=== PATIENT | male | born 1965 | race African-American/Black ===

== ENCOUNTER 2019-03-05 18:21 | Emergency (ER) | payer OTHER ==
[~2019-03-05] VITALS: Ht 175.3 cm; Wt 85.0 kg
[~2019-03-05 18:21] MED LIST: MULT-658 PO
[2019-03-05 18:29] VITALS: BP 155/95
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
[2019-03-05] MEDS ORDERED: DIAZEPAM 5 MG TABLET ONE (18:45)
[2019-03-05] MEDS ORDERED: KETOROLAC 30 MG/1 ML ONE (18:45)
--- NOTE | 2019-03-05 18:56 | NUR ---
REPORT TO MARGI MATTSON
[2019-03-05] MEDS ORDERED: KETOROLAC 30 MG/1 ML IM ONE (19:00)
[2019-03-05] MEDS ORDERED: DIAZEPAM 5 MG TABLET PO ONE (19:00)
== END 2019-03-05 19:50 | disposition home or self-care (01) ==
LOC: ED 19:30
DX: S39.012A Strain of muscle, fascia and tendon of lower back, initial encounter (principal); S16.1XXA Strain of muscle, fascia and tendon at neck level, initial encounter; G89.11 Acute pain due to trauma; M47.892 Other spondylosis, cervical region; M47.896 Other spondylosis, lumbar region; M48.02 Spinal stenosis, cervical region; V49.49XA Driver injured in collision with other motor vehicles in traffic accident, initial encounter; Y93.89 Activity, other specified; Y92.413 State road as the place of occurrence of the external cause; Y99.8 Other external cause status
CPT/HCPCS: 72050; 72110; 96372; 99283; J1885

== ENCOUNTER 2020-11-28 06:17 | Inpatient (IN) | payer OTHER ==
[~2020-11-28] VITALS: Ht 175.3 cm; Wt 97.0 kg
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
[2020-11-28] MEDS ORDERED: ALBUTEROL/IPRATROPIUM 2.5MG/0.5MG, 3 ML ONE (06:44)
[2020-11-28 07:00] LABS: MEAN CORPUSCULAR HEMOGLOBIN 30.5 pg (27.5-34.5); MEAN CORPUSCULAR HGB CONC 33.4 g/dL (33.2-36.2); MEAN PLATELET VOLUME 8.8 fL (7.4-10.4); PLATELET COUNT 357 x10^3/uL (130-400); RED BLOOD COUNT 4.72 x10^6/uL (4.38-5.82); RED CELL DISTRIBUTION WIDTH 13.8 % (9.4-14.8)
[2020-11-28] MEDS ORDERED: ALBUTEROL/IPRATROPIUM 2.5MG/0.5MG, 3 ML NPPB ONE (07:00)
[2020-11-28] MEDS ORDERED: SODIUM CHLORIDE FLUSH 10ML SYR IVF ONE (07:00)
[2020-11-28 07:13] LABS: ALBUMIN 2.9 g/dL (3.4-5.0); ANION GAP 7 mmol/L (5-15); CALCIUM 9.1 mg/dL (8.5-10.1); CHLORIDE 108 mmol/L (98-107)
[2020-11-28 07:16] LABS: ALANINE AMINOTRANSFERASE 44 U/L (12-78); ALKALINE PHOSPHATASE 150 U/L (45-117); BILIRUBIN,TOTAL 0.2 mg/dL (0.2-1.0); CREATININE 1.12 mg/dL (0.7-1.3); TOTAL PROTEIN 8.7 g/dL (6.4-8.2); TROPONIN I < 0.015 ng/mL (0.000-0.045)
[2020-11-28 07:19] LABS: <RBC MORPHOLOGY> NORMAL; BAND#(MANUAL) 2.42 x10^3/uL; BANDS%(MANUAL) 14 % (0-7); EOS#(MANUAL) 0.35 x10^3/uL (0.0-0.4); EOS% (MANUAL) 2 % (1-7); LYMPH#(MANUAL) 2.08 x10^3/uL (1-3.4); LYMPHS% (MANUAL) 12 % (22-44); MONOS#(MANUAL) 0.87 x10^3/uL (0.3-2.7); MONOS% (MANUAL) 5 % (2-9); SEG#(MANUAL) 11.59 x10^3/uL (1.8-6.8); SEGS% (MANUAL) 67 % (42-75)
[2020-11-28 07:20] LABS: <PLATELET ESTIMATE> ADEQUATE; <PLT MORPHOLOGY> NORMAL PLT MORPH
[2020-11-28] MEDS ORDERED: CEFTRIAXONE 1,000 MG in DEXTROSE 5% 50 ML IVPB ONE (08:00)
[2020-11-28] MEDS ORDERED: SODIUM CHLORIDE 0.9% 1,000 ML IV ONE (08:00)
[2020-11-28] MEDS ORDERED: AZITHROMYCIN 500 MG in SODIUM CHLORIDE 0.9% 250 ML IVPB ONE (08:00)
[2020-11-28] MEDS ORDERED: SODIUM CHLORIDE FLUSH 10ML SYR IVF PRN (08:00)
[2020-11-28] MEDS ORDERED: LISI-170 PO (08:17)
--- NOTE | 2020-11-28 08:17 | NUR ---
pt resting in bed, aware of poc.
--- NOTE | 2020-11-28 08:41 | NUR ---
[facility] mahad at bedside for eval.
[2020-11-28] MEDS ORDERED: LACTATED RINGERS 1,000 ML IV ONE (09:00)
[2020-11-28] MEDS ORDERED: CYANOCOBALAMIN 1,000 MCG/ML, 1ML IM ONE (09:00)
[2020-11-28] MEDS ORDERED: ONDANSETRON 2MG/ML, 2ML IVPush PRN (09:00)
[2020-11-28] MEDS ORDERED: ENALAPRILAT 1.25 MG/ML, 2ML IVPush PRN (09:00)
[2020-11-28] MEDS ORDERED: ONDANSETRON ODT 4 MG PO PRN (09:00)
[2020-11-28] MEDS ORDERED: ZINC SULFATE 220 MG CAPSULE PO SCH (09:00)
[2020-11-28] MEDS ORDERED: hydrALAzine 20 MG/ML, 1ML IVPush PRN (09:00)
[2020-11-28] MEDS ORDERED: BUTALB/APAP/CAFFEINE 50MG/325MG/40MG PO PRN (09:00)
[2020-11-28] MEDS ORDERED: methylPREDNISolone SOD SUCC 125 MG/2 ML ONE (09:27)
[2020-11-28] MEDS ORDERED: SENNA/DOCUSATE TABLET ONE (09:27)
[2020-11-28] MEDS ORDERED: ENOXAPARIN 40 MG/0.4 ML ONE (09:27)
[2020-11-28] MEDS ORDERED: ZINC SULFATE 220 MG CAPSULE ONE (09:28)
[2020-11-28] MEDS ORDERED: ONDANSETRON 2MG/ML, 2ML ONE (09:28)
[2020-11-28] MEDS ORDERED: LISINOPRIL 20 MG TABLET ONE (09:29)
[2020-11-28] MEDS ORDERED: FAMOTIDINE 20 MG TABLET ONE (09:29)
[2020-11-28] MEDS: LISINOPRIL 20 MG TABLET PO SCH (09:33)
[2020-11-28] MEDS: SENNA/DOCUSATE TABLET PO SCH (09:33)
[2020-11-28] MEDS: ENOXAPARIN 40 MG/0.4 ML SQ SCH (09:33)
[2020-11-28] MEDS: methylPREDNISolone SOD SUCC 125 MG/2 ML IV SCH ×3 (09:33→22:27)
[2020-11-28] MEDS: FAMOTIDINE 20 MG TABLET PO SCH ×2 (09:34→22:27)
[2020-11-28] MEDS ORDERED: ACETAMINOPHEN 325 MG TABLET ONE (10:06)
[2020-11-28] MEDS: ACETAMINOPHEN 325 MG TABLET PO PRN ×2 (10:10→19:29)
[2020-11-28] MEDS: MULTIVITS,STRESS FORMULA 1 TABLET PO SCH (10:11)
[2020-11-28] MEDS: CHOLECALCIFEROL 5,000u TAB PO SCH (10:11)
--- NOTE | 2020-11-28 10:20 | NUR ---
PT RESTING IN BED, CALL LIGHT IN REACH.
[2020-11-28] MEDS: FLUTICASONE/VILANTEROL 100-25MCG/INH INH SCH (11:09)
--- NOTE | 2020-11-28 12:44 | NUR ---
[facility]
[2020-11-28] MEDS: BACLOFEN 10 MG TABLET PO PRN (13:53)
--- NOTE | 2020-11-28 14:06 | NUR ---
REPORT CALLED TO DAMIÁN MATTSON
[2020-11-28 14:50] VITALS: BP 135/95
[2020-11-28] MEDS: BUTALB/APAP/CAFFEINE 50MG/325MG/40MG PO PRN ×2 (15:48→22:27)
[2020-11-28] MEDS: ASCORBIC ACID 500 MG TABLET PO SCH (15:48)
[2020-11-28] MEDS: CEFTRIAXONE 1,000 MG in DEXTROSE 5% 50 ML IVPB SCH (19:37)
[2020-11-28 19:52] VITALS: BP 125/90
[2020-11-28] MEDS: LIDODERM 5% PATCH TD SCH (22:23)
[2020-11-28] MEDS: MELATONIN 5 MG TABLET PO SCH (23:30)
[2020-11-29 00:45] VITALS: BP 120/79
[2020-11-29] MEDS: BACLOFEN 10 MG TABLET PO PRN (03:39)
[2020-11-29] MEDS: methylPREDNISolone SOD SUCC 125 MG/2 ML IV SCH ×4 (03:39→22:56)
[2020-11-29 06:35] LABS: MEAN CORPUSCULAR HEMOGLOBIN 30.3 pg (27.5-34.5); MEAN CORPUSCULAR HGB CONC 33.3 g/dL (33.2-36.2); MEAN PLATELET VOLUME 8.5 fL (7.4-10.4); PLATELET COUNT 254 x10^3/uL (130-400); RED BLOOD COUNT 4.19 x10^6/uL (4.38-5.82); RED CELL DISTRIBUTION WIDTH 13.9 % (9.4-14.8)
[2020-11-29 06:47] LABS: CHLORIDE 107 mmol/L (98-107)
[2020-11-29 06:53] LABS: ALANINE AMINOTRANSFERASE 33 U/L (12-78); ALBUMIN 2.6 g/dL (3.4-5.0); ALKALINE PHOSPHATASE 111 U/L (45-117); ANION GAP 4 mmol/L (5-15); BILIRUBIN,TOTAL 0.5 mg/dL (0.2-1.0); CALCIUM 9.6 mg/dL (8.5-10.1); CREATININE 1.05 mg/dL (0.7-1.3); TOTAL PROTEIN 8.1 g/dL (6.4-8.2)
[2020-11-29 07:17] LABS: <PLATELET ESTIMATE> ADEQUATE; <PLT MORPHOLOGY> NORMAL PLT MORPH; <RBC MORPHOLOGY> NORMAL; BAND#(MANUAL) 0.66 x10^3/uL; BANDS%(MANUAL) 4 % (0-7); LYMPH#(MANUAL) 0.83 x10^3/uL (1-3.4); LYMPHS% (MANUAL) 5 % (22-44); MONOS% (MANUAL) 3 % (2-9); SEG#(MANUAL) 14.52 x10^3/uL (1.8-6.8); SEGS% (MANUAL) 88 % (42-75)
[2020-11-29 08:36] VITALS: BP 126/89
[2020-11-29] MEDS: GUAIFENESIN/DM 200-20MG, 10ML UDC PO PRN (08:56)
[2020-11-29] MEDS: ASCORBIC ACID 500 MG TABLET PO SCH ×2 (08:57→15:25)
[2020-11-29] MEDS: CHOLECALCIFEROL 5,000u TAB PO SCH (08:57)
[2020-11-29] MEDS: ZINC SULFATE 220 MG CAPSULE PO SCH (08:57)
[2020-11-29] MEDS: ENOXAPARIN 40 MG/0.4 ML SQ SCH (08:57)
[2020-11-29] MEDS: FAMOTIDINE 20 MG TABLET PO SCH ×2 (08:58→22:57)
[2020-11-29] MEDS: MULTIVITS,STRESS FORMULA 1 TABLET PO SCH (08:58)
[2020-11-29] MEDS: SENNA/DOCUSATE TABLET PO SCH (08:58)
[2020-11-29] MEDS: LISINOPRIL 20 MG TABLET PO SCH (08:58)
[2020-11-29] MEDS: AZITHROMYCIN 500 MG in SODIUM CHLORIDE 0.9% 250 ML IV SCH (08:59)
[2020-11-29] MEDS: BUTALB/APAP/CAFFEINE 50MG/325MG/40MG PO PRN ×3 (08:59→18:06)
[2020-11-29] MEDS: FLUTICASONE/VILANTEROL 100-25MCG/INH INH SCH (09:07)
[2020-11-29] MEDS: LIDODERM REMOVE PATCH NOTE XX SCH (10:12)
[2020-11-29] MEDS: CEFTRIAXONE 1,000 MG in DEXTROSE 5% 50 ML IVPB SCH ×2 (10:30→20:22)
[2020-11-29 14:30] VITALS: BP 129/93
[2020-11-29] MEDS ORDERED: AMLO-211 PO (15:26)
[2020-11-29 20:29] VITALS: BP 133/96
[2020-11-29] MEDS: MELATONIN 5 MG TABLET PO SCH (22:56)
[2020-11-29] MEDS: LIDODERM 5% PATCH TD SCH (23:00)
[2020-11-30 01:20] VITALS: BP 132/63
[2020-11-30] MEDS: methylPREDNISolone SOD SUCC 125 MG/2 ML IV SCH ×2 (04:25→10:25)
[2020-11-30 05:49] LABS: MEAN CORPUSCULAR HEMOGLOBIN 30.1 pg (27.5-34.5); MEAN CORPUSCULAR HGB CONC 33.1 g/dL (33.2-36.2); MEAN PLATELET VOLUME 8.9 fL (7.4-10.4); PLATELET COUNT 247 x10^3/uL (130-400); RED BLOOD COUNT 4.05 x10^6/uL (4.38-5.82); RED CELL DISTRIBUTION WIDTH 13.8 % (9.4-14.8)
[2020-11-30 05:52] LABS: CHLORIDE 108 mmol/L (98-107)
[2020-11-30 06:08] LABS: BAND#(MANUAL) 2.29 x10^3/uL; BANDS%(MANUAL) 11 % (0-7); LYMPH#(MANUAL) 0.62 x10^3/uL (1-3.4); LYMPHS% (MANUAL) 3 % (22-44); MONOS#(MANUAL) 0.62 x10^3/uL (0.3-2.7); MONOS% (MANUAL) 3 % (2-9); SEG#(MANUAL) 17.26 x10^3/uL (1.8-6.8); SEGS% (MANUAL) 83 % (42-75)
[2020-11-30 06:09] LABS: <PLATELET ESTIMATE> ADEQUATE; <PLT MORPHOLOGY> NORMAL PLT MORPH; <RBC MORPHOLOGY> NORMAL
[2020-11-30 06:11] LABS: ALBUMIN 2.4 g/dL (3.4-5.0); ANION GAP 8 mmol/L (5-15); CALCIUM 9.5 mg/dL (8.5-10.1); CREATININE 0.81 mg/dL (0.7-1.3)
[2020-11-30] MEDS: SENNA/DOCUSATE TABLET PO SCH (09:00)
[2020-11-30] MEDS: CHOLECALCIFEROL 5,000u TAB PO SCH (10:23)
[2020-11-30] MEDS: GUAIFENESIN/DM 200-20MG, 10ML UDC PO PRN (10:23)
[2020-11-30] MEDS: ZINC SULFATE 220 MG CAPSULE PO SCH (10:23)
[2020-11-30] MEDS: FAMOTIDINE 20 MG TABLET PO SCH (10:23)
[2020-11-30] MEDS: ENOXAPARIN 40 MG/0.4 ML SQ SCH (10:24)
[2020-11-30] MEDS: MULTIVITS,STRESS FORMULA 1 TABLET PO SCH (10:25)
[2020-11-30] MEDS: ASCORBIC ACID 500 MG TABLET PO SCH (10:25)
[2020-11-30] MEDS: AZITHROMYCIN 500 MG in SODIUM CHLORIDE 0.9% 250 ML IV SCH (10:25)
[2020-11-30] MEDS: BUTALB/APAP/CAFFEINE 50MG/325MG/40MG PO PRN (10:25)
[2020-11-30] MEDS: FLUTICASONE/VILANTEROL 100-25MCG/INH INH SCH (10:26)
[2020-11-30] MEDS: LIDODERM REMOVE PATCH NOTE XX SCH (10:30)
[2020-11-30 10:36] VITALS: BP 136/86
[2020-11-30] MEDS: LISINOPRIL 20 MG TABLET PO SCH (10:38)
[2020-11-30] MEDS ORDERED: FLUT1AER INH (11:23)
[2020-11-30] MEDS ORDERED: PRED20TA PO (11:23)
[2020-11-30] MEDS ORDERED: ZINC220C8 PO (11:23)
[2020-11-30] MEDS ORDERED: MELA5TAB14 PO (11:23)
[2020-11-30] MEDS ORDERED: ASCO500T9 PO (11:23)
[2020-11-30] MEDS ORDERED: CHOL500045 PO (11:23)
[2020-11-30] MEDS: CEFTRIAXONE 1,000 MG in DEXTROSE 5% 50 ML IVPB SCH (11:41)
[2020-11-30] MEDS ORDERED: AZIT250T PO (14:57)
[2020-11-30] MEDS ORDERED: CEFD300C37 PO (14:57)
== END 2020-11-30 14:45 | disposition home or self-care (01) | DRG 871 ==
LOC: ED 08:04 → EDIP 08:16 → 4WST 15:00
PROVIDERS: ADMIT Family Medicine; ATTEND Family Medicine
DX: A41.9 Sepsis, unspecified organism (principal); J15.9 Unspecified bacterial pneumonia; J96.01 Acute respiratory failure with hypoxia; I10 Essential (primary) hypertension; R73.9 Hyperglycemia, unspecified
CPT/HCPCS: 36415; 71045; 80053; 80069; 82306; 83605; 83735; 83880; 84100; 84145; 84484; 85025; 85379; 87040; 93005; 96365; 96367; G0378; J0456; J0696; J1650; J2405; U0005; J2930; J3420; J7030; J7050; J7120; U0003

== ENCOUNTER 2020-12-03 13:17 | Inpatient (IN) | payer OTHER ==
[~2020-12-03] VITALS: Ht 175.3 cm; Wt 87.4 kg
[~2020-12-03 13:17] MED LIST changes: +AMLO-211 PO; +ASCO500T9 PO; +AZIT250T PO; +CEFD300C37 PO; +CHOL500045 PO; +FLUT1AER INH; +LISI-170 PO; +MELA5TAB14 PO; +PRED20TA PO; +ZINC220C8 PO
[2020-12-03 14:17] LABS: BASOPHILS % (AUTO) 0 % (0-1); EOSINOPHILS % (AUTO) 0 % (1-7); LYMPHOCYTES % (AUTO) 3 % (22-44); MEAN CORPUSCULAR HEMOGLOBIN 30.1 pg (27.5-34.5); MEAN CORPUSCULAR HGB CONC 33.2 g/dL (33.2-36.2); MEAN PLATELET VOLUME 8.9 fL (7.4-10.4); MONOCYTES % (AUTO) 2 % (2-9); NEUTROPHILS % (AUTO) 94 % (42-75); PLATELET COUNT 318 x10^3/uL (130-400); RED BLOOD COUNT 4.52 x10^6/uL (4.38-5.82); RED CELL DISTRIBUTION WIDTH 13.9 % (9.4-14.8)
[2020-12-03 14:22] LABS: ALANINE AMINOTRANSFERASE 171 U/L (12-78); ALBUMIN 2.6 g/dL (3.4-5.0); ANION GAP 8 mmol/L (5-15); CALCIUM 9.1 mg/dL (8.5-10.1); CHLORIDE 103 mmol/L (98-107)
[2020-12-03 14:26] LABS: ALKALINE PHOSPHATASE 178 U/L (45-117); BILIRUBIN,TOTAL 0.9 mg/dL (0.2-1.0); CREATININE 0.87 mg/dL (0.7-1.3); TOTAL PROTEIN 8.5 g/dL (6.4-8.2)
--- NOTE | 2020-12-03 14:40 | NUR ---
PT TO ROOM FROM LOBBY
[2020-12-03] MEDS ORDERED: PIPERACILLIN/TAZO 3.375 GM in DEXTROSE 5% 50 ML IVPB ONE (15:00)
[2020-12-03] MEDS ORDERED: SODIUM CHLORIDE FLUSH 10ML SYR IVF ONE (15:00)
--- NOTE | 2020-12-03 15:08 | NUR ---
IV PLACED. PT PLACED ON ALL ROOM MONITORING, NSR/ST ON MONITOR. HTN PRESENT 158/100. US AT BS, CALL LIGHT WITHIN REACH.
--- NOTE | 2020-12-03 15:13 | NUR ---
us in with patient
[2020-12-03] MEDS ORDERED: OMNIPAQUE 350 MG/ML, 75ML BOTTLE ONE (16:10)
[2020-12-03 16:20] LABS: TROPONIN I < 0.015 ng/mL (0.000-0.045)
--- NOTE | 2020-12-03 16:20 | NUR ---
PT BACK FROM CT. PT STATES COVID TESTED THREE TIMES IN PAST WEEK, ALL RESULTS NEGATIVE. ERP NOTIFIED, HOLD ON RETESTING FOR COVID AT THIS TIME. MED REC COMPLETED, CALL LIGHT WITHIN REACH.
[2020-12-03] MEDS ORDERED: POTASSIUM CHLORIDE 20 MEQ TAB.ER.PRT PO ONE (17:00)
[2020-12-03] MEDS ORDERED: VANCOMYCIN PER PHARMACY MC PRN (17:00)
[2020-12-03] MEDS: PIPERACILLIN/TAZO 3.375 GM in DEXTROSE 5% 50 ML IV SCH ×2 (17:07→23:31)
--- NOTE | 2020-12-03 17:13 | NUR ---
ANTIBIOTIC INFUSING PER ORDER AFTER BC X 2 DRAWN.
[2020-12-03] MEDS ORDERED: ASCORBIC ACID 500 MG TABLET ONE (17:29)
[2020-12-03] MEDS ORDERED: POTASSIUM CHLORIDE 20 MEQ TAB.ER.PRT ONE (17:29)
[2020-12-03] MEDS ORDERED: CYCLOBENZAPRINE 10 MG TABLET ONE (17:29)
[2020-12-03] MEDS ORDERED: ONDANSETRON ODT 4 MG PO PRN (17:30)
[2020-12-03] MEDS ORDERED: ONDANSETRON 2MG/ML, 2ML IVPush PRN (17:30)
[2020-12-03] MEDS ORDERED: DIPHENOXYLATE/ATROPINE TABLET PO PRN (17:30)
[2020-12-03] MEDS: CYCLOBENZAPRINE 10 MG TABLET PO PRN (17:41)
[2020-12-03] MEDS: ASCORBIC ACID 500 MG TABLET PO SCH (17:41)
[2020-12-03] MEDS ORDERED: LIDOCAINE 1%, 10ML ONE ×2 (17:52→18:31)
[2020-12-03 17:58] VITALS: BP 158/97
[2020-12-03 18:19] VITALS: BP 158/97
[2020-12-03] MEDS ORDERED: PHARMACOKINETIC MONITORING MC PRN (19:00)
[2020-12-03] MEDS ORDERED: VANCOMYCIN 2,100 MG in SODIUM CHLORIDE 0.9% 500 ML IV ONE (19:00)
[2020-12-03 19:46] VITALS: BP 144/91
[2020-12-03] MEDS: HEPARIN 5,000 UNITS/ML, 1ML SQ SCH (19:47)
[2020-12-03] MEDS: CARVEDILOL 6.25 MG TABLET PO SCH (19:47)
[2020-12-03] MEDS: MELATONIN 5 MG TABLET PO SCH (20:05)
[2020-12-03] MEDS: LACTOBACILLUS CHEW TABLET PO SCH (20:05)
[2020-12-03 20:44] VITALS: BP 138/97
[2020-12-03] MEDS ORDERED: ALBUTEROL SULFATE 2.5 MG/3 ML NPPB SCH (21:00)
[2020-12-03] MEDS ORDERED: BUDESONIDE 0.5 MG/2 ML INHA INH SCH (21:00)
[2020-12-04 00:46] VITALS: BP 144/91
[2020-12-04] MEDS: HEPARIN 5,000 UNITS/ML, 1ML SQ SCH ×3 (00:50→16:43)
[2020-12-04 05:02] VITALS: BP 131/91
[2020-12-04] MEDS: CARVEDILOL 6.25 MG TABLET PO SCH ×2 (05:03→16:49)
[2020-12-04] MEDS: PIPERACILLIN/TAZO 3.375 GM in DEXTROSE 5% 50 ML IV SCH ×3 (05:03→18:03)
[2020-12-04 06:21] LABS: BASOPHILS % (AUTO) 0 % (0-1); EOSINOPHILS % (AUTO) 1 % (1-7); LYMPHOCYTES % (AUTO) 16 % (22-44); MEAN CORPUSCULAR HEMOGLOBIN 30.6 pg (27.5-34.5); MEAN CORPUSCULAR HGB CONC 33.7 g/dL (33.2-36.2); MEAN PLATELET VOLUME 8.9 fL (7.4-10.4); MONOCYTES % (AUTO) 11 % (2-9); NEUTROPHILS % (AUTO) 72 % (42-75); PLATELET COUNT 284 x10^3/uL (130-400); RED BLOOD COUNT 4.15 x10^6/uL (4.38-5.82)
[2020-12-04 06:36] LABS: ALANINE AMINOTRANSFERASE 164 U/L (12-78); ALBUMIN 2.1 g/dL (3.4-5.0); ANION GAP 8 mmol/L (5-15); CALCIUM 8.9 mg/dL (8.5-10.1); CHLORIDE 107 mmol/L (98-107)
[2020-12-04 06:39] LABS: ALKALINE PHOSPHATASE 159 U/L (45-117); BILIRUBIN,TOTAL 0.8 mg/dL (0.2-1.0); CREATININE 0.78 mg/dL (0.7-1.3)
[2020-12-04 07:44] VITALS: BP 134/87
[2020-12-04] MEDS: LACTOBACILLUS CHEW TABLET PO SCH ×3 (08:54→20:02)
[2020-12-04] MEDS: ASCORBIC ACID 500 MG TABLET PO SCH ×2 (08:54→16:42)
[2020-12-04] MEDS: ZINC SULFATE 220 MG CAPSULE PO SCH (08:54)
[2020-12-04] MEDS: CHOLECALCIFEROL 5,000u TAB PO SCH (08:54)
[2020-12-04] MEDS: LISINOPRIL 20 MG TABLET PO SCH (08:55)
[2020-12-04] MEDS: ALBUTEROL HFA 90 MCG/SPRAY INH SCH (09:00)
[2020-12-04] MEDS ORDERED: FLUTICASONE/VILANTEROL 100-25MCG/INH INH SCH (09:00)
[2020-12-04] MEDS: VANCOMYCIN 1,700 MG in SODIUM CHLORIDE 0.9% 250 ML IV SCH ×2 (10:22→21:36)
[2020-12-04 14:53] VITALS: BP 141/90
[2020-12-04] MEDS: MELATONIN 5 MG TABLET PO SCH (20:02)
[2020-12-04 20:09] VITALS: BP 137/81
[2020-12-05] VITALS (13 sets, daily range): BP systolic 122–182; BP diastolic 50–150
[2020-12-05] MEDS: PIPERACILLIN/TAZO 3.375 GM in DEXTROSE 5% 50 ML IV SCH ×4 (00:20→19:51)
[2020-12-05] MEDS: CARVEDILOL 6.25 MG TABLET PO SCH ×2 (06:04→20:23)
[2020-12-05 06:31] LABS: BASOPHILS % (AUTO) 0 % (0-1); EOSINOPHILS % (AUTO) 1 % (1-7); LYMPHOCYTES % (AUTO) 13 % (22-44); MEAN CORPUSCULAR HEMOGLOBIN 30.4 pg (27.5-34.5); MEAN CORPUSCULAR HGB CONC 33.6 g/dL (33.2-36.2); MONOCYTES % (AUTO) 9 % (2-9); NEUTROPHILS % (AUTO) 77 % (42-75); PLATELET COUNT 316 x10^3/uL (130-400); RED BLOOD COUNT 4.31 x10^6/uL (4.38-5.82); RED CELL DISTRIBUTION WIDTH 13.7 % (9.4-14.8)
[2020-12-05 06:37] LABS: INTERNATIONAL NORMALIZED RATIO 1.02 (0.93-1.1); PROTHROMBIN TIME 10.9 Seconds (9.6-11.5)
[2020-12-05 06:38] LABS: ALBUMIN 2.2 g/dL (3.4-5.0); CHLORIDE 105 mmol/L (98-107)
[2020-12-05 06:45] LABS: ALANINE AMINOTRANSFERASE 186 U/L (12-78); ALKALINE PHOSPHATASE 205 U/L (45-117); ANION GAP 10 mmol/L (5-15); BILIRUBIN,TOTAL 1.4 mg/dL (0.2-1.0); CALCIUM 9.1 mg/dL (8.5-10.1); CREATININE 0.86 mg/dL (0.7-1.3); TOTAL PROTEIN 7.5 g/dL (6.4-8.2)
[2020-12-05] MEDS: ASCORBIC ACID 500 MG TABLET PO SCH ×2 (08:00→20:22)
[2020-12-05] MEDS: LACTOBACILLUS CHEW TABLET PO SCH ×3 (09:00→20:23)
[2020-12-05] MEDS: ALBUTEROL HFA 90 MCG/SPRAY INH SCH (09:00)
[2020-12-05] MEDS: CHOLECALCIFEROL 5,000u TAB PO SCH (09:00)
[2020-12-05] MEDS: ZINC SULFATE 220 MG CAPSULE PO SCH (09:00)
[2020-12-05] MEDS: LISINOPRIL 20 MG TABLET PO SCH (11:09)
[2020-12-05] MEDS: VANCOMYCIN 1,900 MG in SODIUM CHLORIDE 0.9% 250 ML IV SCH ×2 (11:09→23:13)
[2020-12-05] MEDS ORDERED: ONDANSETRON 2MG/ML, 2ML IVPush PRN ×2 (12:30→16:00)
[2020-12-05] MEDS ORDERED: MEPERIDINE/PF 25MG/0.5ML IVPush PRN (12:30)
[2020-12-05] MEDS ORDERED: PROMETHAZINE 25 MG/ML, 1ML IVPush PRN ×2 (12:30→16:00)
[2020-12-05] MEDS ORDERED: HYDROcodone/APAP 7.5-325MG/15ML UDC PO PRN (12:30)
[2020-12-05] MEDS ORDERED: OXYcodone 5 MG/5 ML ORAL.SOL UDC PO PRN ×2 (12:30→16:00)
[2020-12-05] MEDS ORDERED: EPINEPHRINE 1 MG/ML, 1ML ONE (14:03)
[2020-12-05] MEDS ORDERED: BUPIVACAINE/PF 0.25% ONE (14:03)
[2020-12-05] MEDS ORDERED: CHLORHEXIDINE 15 ML UDC ONE (14:13)
[2020-12-05] MEDS ORDERED: CHLORHEXIDINE 15 ML UDC PO ONE (14:30)
[2020-12-05] MEDS ORDERED: PROPOFOL 10 MG/ML, 20ML ONE (14:37)
[2020-12-05] MEDS ORDERED: MIDAZOLAM 1 MG/ML, 2ML ONE (14:37)
[2020-12-05] MEDS ORDERED: FENTANYL PF 250 MCG/5ML ONE (14:37)
[2020-12-05] MEDS ORDERED: DEXAMETHASONE 4 MG/ML, 1ML ONE ×2 (15:21)
[2020-12-05] MEDS ORDERED: ONDANSETRON 2MG/ML, 2ML ONE (15:48)
[2020-12-05] MEDS ORDERED: ROCURONIUM 10MG/ML,5ML ONE (15:48)
[2020-12-05] MEDS ORDERED: HYDROmorphone 1 MG/ML, 1ML INJ IVPush PRN (16:00)
[2020-12-05] MEDS ORDERED: hydrALAzine 20 MG/ML, 1ML IV PRN (16:00)
[2020-12-05] MEDS ORDERED: ACETAMINOPHEN 325 MG TABLET PO PRN (16:00)
[2020-12-05] MEDS ORDERED: LABETALOL 5MG/ML, 20ML IV PRN (16:00)
[2020-12-05] MEDS ORDERED: FENTANYL PF 100 MCG/2ML IV PRN (16:00)
[2020-12-05] MEDS ORDERED: FENTANYL PF 100 MCG/2ML ONE ×2 (16:11→17:12)
[2020-12-05] MEDS ORDERED: OXYcodone 5 MG/5 ML ORAL.SOL UDC ONE (17:12)
[2020-12-05] MEDS ORDERED: ACETAMINOPHEN 650 MG/20.3 ML UDC ONE (17:12)
[2020-12-05] MEDS: FENTANYL PF 100 MCG/2ML IV PRN ×3 (17:16→18:23)
[2020-12-05] MEDS ORDERED: HYDROmorphone 2 MG/ML, 1ML ONE (17:28)
[2020-12-05] MEDS: HYDROmorphone 1 MG/ML, 1ML INJ IVPush PRN ×2 (17:29→18:24)
[2020-12-05] MEDS: MELATONIN 5 MG TABLET PO SCH (20:21)
[2020-12-05] MEDS: ACETAMINOPHEN 325 MG TABLET PO PRN (20:48)
[2020-12-05] MEDS ORDERED: HYDROmorphone 2 MG/ML, 1ML IVPush PRN (23:00)
[2020-12-05] MEDS: morphine SULFATE 10 MG/ML, 1ML IV PRN (23:06)
[2020-12-06] MEDS: ENOXAPARIN 40 MG/0.4 ML SQ SCH ×2 (00:11→22:57)
[2020-12-06] MEDS: CEFOTETAN PMX 1GM/50ML 50 ML IVPB SCH ×2 (00:12→12:14)
[2020-12-06 01:18] VITALS: BP 120/85
[2020-12-06] MEDS: D5%-0.45NACL+KCL 20MEQ 1,000 ML IV SCH ×3 (01:22→21:49)
[2020-12-06] MEDS: PIPERACILLIN/TAZO 3.375 GM in DEXTROSE 5% 50 ML IV SCH ×4 (01:58→20:01)
[2020-12-06 05:24] LABS: BASOPHILS % (AUTO) 0 % (0-1); EOSINOPHILS % (AUTO) 0 % (1-7); LYMPHOCYTES % (AUTO) 7 % (22-44); MEAN CORPUSCULAR HEMOGLOBIN 30.4 pg (27.5-34.5); MEAN CORPUSCULAR HGB CONC 33.2 g/dL (33.2-36.2); MEAN PLATELET VOLUME 8.6 fL (7.4-10.4); MONOCYTES % (AUTO) 7 % (2-9); NEUTROPHILS % (AUTO) 86 % (42-75); PLATELET COUNT 346 x10^3/uL (130-400); RED BLOOD COUNT 4.02 x10^6/uL (4.38-5.82); RED CELL DISTRIBUTION WIDTH 13.7 % (9.4-14.8)
[2020-12-06] MEDS: morphine SULFATE 10 MG/ML, 1ML IV PRN ×4 (05:59→21:48)
[2020-12-06] MEDS: CARVEDILOL 6.25 MG TABLET PO SCH ×2 (05:59→17:50)
[2020-12-06 07:08] VITALS: BP 112/76
[2020-12-06] MEDS: CHOLECALCIFEROL 5,000u TAB PO SCH (08:03)
[2020-12-06] MEDS: ACETAMINOPHEN 325 MG TABLET PO PRN (08:03)
[2020-12-06] MEDS: LACTOBACILLUS CHEW TABLET PO SCH ×3 (08:03→21:50)
[2020-12-06] MEDS: ZINC SULFATE 220 MG CAPSULE PO SCH (08:03)
[2020-12-06] MEDS: ASCORBIC ACID 500 MG TABLET PO SCH ×2 (08:03→15:06)
[2020-12-06] MEDS: LISINOPRIL 20 MG TABLET PO SCH (08:04)
[2020-12-06] MEDS: ALBUTEROL HFA 90 MCG/SPRAY INH SCH (08:04)
[2020-12-06] MEDS: SODIUM CHLORIDE FLUSH 10ML SYR IVF SCH ×2 (08:04→21:49)
[2020-12-06] MEDS: CYCLOBENZAPRINE 10 MG TABLET PO PRN (10:11)
[2020-12-06] MEDS: VANCOMYCIN 1,900 MG in SODIUM CHLORIDE 0.9% 250 ML IV SCH ×2 (10:42→22:57)
[2020-12-06 13:28] VITALS: BP 117/87
[2020-12-06 20:33] VITALS: BP 110/75
[2020-12-06] MEDS: MELATONIN 5 MG TABLET PO SCH (21:00)
[2020-12-07 02:00] VITALS: BP 111/75
[2020-12-07] MEDS: PIPERACILLIN/TAZO 3.375 GM in DEXTROSE 5% 50 ML IV SCH ×4 (04:39→22:33)
[2020-12-07] MEDS: morphine SULFATE 10 MG/ML, 1ML IV PRN ×3 (04:40→23:00)
[2020-12-07 04:49] VITALS: BP 111/75
[2020-12-07] MEDS: CARVEDILOL 6.25 MG TABLET PO SCH ×2 (07:31→17:09)
[2020-12-07] MEDS: D5%-0.45NACL+KCL 20MEQ 1,000 ML IV SCH ×2 (07:31→23:00)
[2020-12-07] MEDS: ALBUTEROL HFA 90 MCG/SPRAY INH SCH (09:00)
[2020-12-07] MEDS: CHOLECALCIFEROL 5,000u TAB PO SCH (09:00)
[2020-12-07] MEDS: LISINOPRIL 20 MG TABLET PO SCH (09:00)
[2020-12-07 09:52] VITALS: BP 95/67
[2020-12-07] MEDS: ACETAMINOPHEN 325 MG TABLET PO PRN (09:57)
[2020-12-07] MEDS: LACTOBACILLUS CHEW TABLET PO SCH ×3 (09:57→22:33)
[2020-12-07] MEDS: ZINC SULFATE 220 MG CAPSULE PO SCH (09:57)
[2020-12-07] MEDS: SODIUM CHLORIDE FLUSH 10ML SYR IVF SCH ×2 (09:58→22:32)
[2020-12-07] MEDS: ASCORBIC ACID 500 MG TABLET PO SCH ×2 (09:59→17:09)
[2020-12-07] MEDS: VANCOMYCIN 1,900 MG in SODIUM CHLORIDE 0.9% 250 ML IV SCH ×2 (10:06→22:33)
[2020-12-07 14:13] VITALS: BP 102/68
[2020-12-07 17:05] VITALS: BP 138/89
[2020-12-07 20:09] VITALS: BP 116/75
[2020-12-07] MEDS: MELATONIN 5 MG TABLET PO SCH (21:00)
[2020-12-07] MEDS: ENOXAPARIN 40 MG/0.4 ML SQ SCH (22:34)
[2020-12-08 00:39] VITALS: BP 111/74
[2020-12-08] MEDS: PIPERACILLIN/TAZO 3.375 GM in DEXTROSE 5% 50 ML IV SCH ×2 (05:30→11:10)
[2020-12-08] MEDS: ACETAMINOPHEN 325 MG TABLET PO PRN ×2 (05:33→17:56)
[2020-12-08] MEDS: CARVEDILOL 6.25 MG TABLET PO SCH ×2 (06:22→17:46)
[2020-12-08 06:23] VITALS: BP 104/71
[2020-12-08] MEDS: SODIUM CHLORIDE FLUSH 10ML SYR IVF SCH ×2 (09:00→21:29)
[2020-12-08] MEDS: CHOLECALCIFEROL 5,000u TAB PO SCH (09:18)
[2020-12-08] MEDS: ZINC SULFATE 220 MG CAPSULE PO SCH (09:18)
[2020-12-08] MEDS: LISINOPRIL 20 MG TABLET PO SCH (09:18)
[2020-12-08] MEDS: LACTOBACILLUS CHEW TABLET PO SCH ×3 (09:18→21:28)
[2020-12-08] MEDS: ASCORBIC ACID 500 MG TABLET PO SCH ×2 (09:19→17:46)
[2020-12-08 10:39] LABS: BASOPHILS % (AUTO) 1 % (0-1); EOSINOPHILS % (AUTO) 1 % (1-7); LYMPHOCYTES % (AUTO) 7 % (22-44); MEAN CORPUSCULAR HGB CONC 32.6 g/dL (33.2-36.2); MEAN PLATELET VOLUME 8.4 fL (7.4-10.4); MONOCYTES % (AUTO) 7 % (2-9); NEUTROPHILS % (AUTO) 84 % (42-75); PLATELET COUNT 340 x10^3/uL (130-400); RED BLOOD COUNT 4.01 x10^6/uL (4.38-5.82); RED CELL DISTRIBUTION WIDTH 14.1 % (9.4-14.8)
[2020-12-08 10:48] LABS: ALANINE AMINOTRANSFERASE 54 U/L (12-78); ALBUMIN 1.5 g/dL (3.4-5.0); ANION GAP 10 mmol/L (5-15); CALCIUM 8.6 mg/dL (8.5-10.1); CHLORIDE 104 mmol/L (98-107)
[2020-12-08 10:51] LABS: ALKALINE PHOSPHATASE 160 U/L (45-117); BILIRUBIN,TOTAL 0.7 mg/dL (0.2-1.0); CREATININE 5.84 mg/dL (0.7-1.3); TOTAL PROTEIN 7.3 g/dL (6.4-8.2)
[2020-12-08] MEDS: ALBUTEROL HFA 90 MCG/SPRAY INH SCH (11:34)
[2020-12-08 12:26] LABS: VANCOMYCIN,TROUGH 109.3 mcg/mL (5.0-10.0)
[2020-12-08] MEDS ORDERED: PHARMACY MAY ADJ FOR RENAL FX MC PRN (12:30)
[2020-12-08] MEDS ORDERED: FUROSEMIDE 40 MG/4 ML IV ONE (13:00)
[2020-12-08] MEDS ORDERED: ALBUMIN HUMAN 25% 100 ML IV PRN (13:00)
[2020-12-08 15:53] VITALS: BP 126/82
[2020-12-08 15:54] LABS: CHLORIDE,URINE RANDOM 79 mmol/L; POTASSIUM,URINE RANDOM 7 mmol/L; SODIUM,URINE RANDOM 80 mmol/L
[2020-12-08 15:56] LABS: CREATININE,URINE RANDOM 18.7 mg/dL
[2020-12-08 16:11] LABS: MICROSCOPIC INDICATED
[2020-12-08 20:32] VITALS: BP 122/79
[2020-12-08] MEDS: MELATONIN 5 MG TABLET PO SCH (21:00)
[2020-12-08] MEDS: ENOXAPARIN 30 MG/0.3 ML SQ SCH (21:12)
[2020-12-08] MEDS: PIPERACILLIN/TAZO 2.25 GM in DEXTROSE 5% 50 ML IV SCH (21:33)
[2020-12-09 00:47] VITALS: BP 132/87
[2020-12-09 05:26] VITALS: BP 145/97
[2020-12-09] MEDS: PIPERACILLIN/TAZO 2.25 GM in DEXTROSE 5% 50 ML IV SCH ×3 (05:41→21:12)
[2020-12-09] MEDS: CARVEDILOL 6.25 MG TABLET PO SCH ×2 (05:41→16:51)
[2020-12-09 06:55] LABS: BASOPHILS % (AUTO) 0 % (0-1); EOSINOPHILS % (AUTO) 2 % (1-7); LYMPHOCYTES % (AUTO) 6 % (22-44); MEAN CORPUSCULAR HEMOGLOBIN 30.3 pg (27.5-34.5); MEAN PLATELET VOLUME 8.6 fL (7.4-10.4); MONOCYTES % (AUTO) 8 % (2-9); NEUTROPHILS % (AUTO) 85 % (42-75); PLATELET COUNT 369 x10^3/uL (130-400); RED BLOOD COUNT 3.99 x10^6/uL (4.38-5.82); RED CELL DISTRIBUTION WIDTH 14.5 % (9.4-14.8)
[2020-12-09 07:00] LABS: ALBUMIN 1.7 g/dL (3.4-5.0); ANION GAP 14 mmol/L (5-15); CALCIUM 9.1 mg/dL (8.5-10.1); CHLORIDE 102 mmol/L (98-107)
[2020-12-09 07:04] LABS: % IRON SATURATION 19 % (20-55); ALANINE AMINOTRANSFERASE 44 U/L (12-78); ALKALINE PHOSPHATASE 191 U/L (45-117); BILIRUBIN,TOTAL 0.7 mg/dL (0.2-1.0); CREATININE 6.87 mg/dL (0.7-1.3); IRON LEVEL 37 mcg/dL (65-175); TOTAL IRON BINDING CAPACITY 195 mcg/dL (250-450); TOTAL PROTEIN 7.3 g/dL (6.4-8.2)
[2020-12-09 07:50] VITALS: BP 134/90
[2020-12-09] MEDS: ZINC SULFATE 220 MG CAPSULE PO SCH (08:07)
[2020-12-09] MEDS: SODIUM CHLORIDE FLUSH 10ML SYR IVF SCH ×2 (08:07→21:12)
[2020-12-09] MEDS: CHOLECALCIFEROL 5,000u TAB PO SCH (08:07)
[2020-12-09] MEDS: ALBUTEROL HFA 90 MCG/SPRAY INH SCH (08:07)
[2020-12-09] MEDS: ASCORBIC ACID 500 MG TABLET PO SCH ×2 (08:07→16:51)
[2020-12-09] MEDS: LACTOBACILLUS CHEW TABLET PO SCH ×3 (08:07→21:12)
[2020-12-09] MEDS: ACETAMINOPHEN 325 MG TABLET PO PRN (08:14)
[2020-12-09] MEDS ORDERED: LACTOBACILLUS CHEW TABLET PO SCH (09:00)
[2020-12-09 12:57] VITALS: BP 125/80
[2020-12-09] MEDS: IRON SUCROSE COMPLEX 100MG/5ML IV SCH (13:27)
[2020-12-09] MEDS: ERGOCALCIFEROL 50,000 UNIT CAPSULE PO SCH (13:27)
[2020-12-09 20:27] VITALS: BP 137/90
[2020-12-09] MEDS: MELATONIN 5 MG TABLET PO SCH (21:00)
[2020-12-09] MEDS: ENOXAPARIN 30 MG/0.3 ML SQ SCH (21:07)
[2020-12-10 00:09] VITALS: BP 142/90
[2020-12-10 04:03] LABS: BASOPHILS % (AUTO) 0 % (0-1); EOSINOPHILS % (AUTO) 2 % (1-7); LYMPHOCYTES % (AUTO) 6 % (22-44); MEAN CORPUSCULAR HEMOGLOBIN 30.3 pg (27.5-34.5); MEAN CORPUSCULAR HGB CONC 33.2 g/dL (33.2-36.2); MEAN PLATELET VOLUME 8.5 fL (7.4-10.4); MONOCYTES % (AUTO) 8 % (2-9); NEUTROPHILS % (AUTO) 84 % (42-75); PLATELET COUNT 326 x10^3/uL (130-400); RED BLOOD COUNT 3.92 x10^6/uL (4.38-5.82)
[2020-12-10 04:15] LABS: CHLORIDE 101 mmol/L (98-107)
[2020-12-10 04:20] LABS: ALBUMIN 1.5 g/dL (3.4-5.0); ANION GAP 12 mmol/L (5-15); CALCIUM 8.9 mg/dL (8.5-10.1); CREATININE 7.56 mg/dL (0.7-1.3)
[2020-12-10] MEDS: PIPERACILLIN/TAZO 2.25 GM in DEXTROSE 5% 50 ML IV SCH ×3 (05:50→20:42)
[2020-12-10] MEDS: ASCORBIC ACID 500 MG TABLET PO SCH ×2 (05:50→17:59)
[2020-12-10] MEDS: CARVEDILOL 6.25 MG TABLET PO SCH ×2 (05:50→17:59)
[2020-12-10 06:00] VITALS: BP 165/95
[2020-12-10 07:04] VITALS: BP 146/85
[2020-12-10] MEDS: ZINC SULFATE 220 MG CAPSULE PO SCH (08:29)
[2020-12-10] MEDS: LACTOBACILLUS CHEW TABLET PO SCH ×3 (08:29→20:39)
[2020-12-10] MEDS: ALBUTEROL HFA 90 MCG/SPRAY INH SCH (08:30)
[2020-12-10] MEDS: SODIUM CHLORIDE FLUSH 10ML SYR IVF SCH ×2 (08:37→20:39)
[2020-12-10] MEDS: IRON SUCROSE COMPLEX 100MG/5ML IV SCH (12:50)
[2020-12-10] MEDS: AMLODIPINE 10 MG TAB PO SCH (12:50)
[2020-12-10] MEDS: ACETAMINOPHEN 325 MG TABLET PO PRN (12:58)
[2020-12-10 13:05] VITALS: BP 152/89
[2020-12-10 18:33] VITALS: BP 158/81
[2020-12-10] MEDS: ENOXAPARIN 30 MG/0.3 ML SQ SCH (20:17)
[2020-12-10] MEDS: CYCLOBENZAPRINE 10 MG TABLET PO PRN (20:39)
[2020-12-10] MEDS: MELATONIN 5 MG TABLET PO SCH (20:39)
[2020-12-11 01:43] VITALS: BP 144/73
[2020-12-11] MEDS: CARVEDILOL 6.25 MG TABLET PO SCH ×2 (05:48→17:19)
[2020-12-11] MEDS: PIPERACILLIN/TAZO 2.25 GM in DEXTROSE 5% 50 ML IV SCH (05:48)
[2020-12-11] MEDS: ACETAMINOPHEN 325 MG TABLET PO PRN ×2 (05:50→21:29)
[2020-12-11 07:29] LABS: BASOPHILS % (AUTO) 0 % (0-1); EOSINOPHILS % (AUTO) 2 % (1-7); LYMPHOCYTES % (AUTO) 5 % (22-44); MEAN CORPUSCULAR HEMOGLOBIN 30.1 pg (27.5-34.5); MEAN CORPUSCULAR HGB CONC 33.2 g/dL (33.2-36.2); MEAN PLATELET VOLUME 8.1 fL (7.4-10.4); MONOCYTES % (AUTO) 7 % (2-9); NEUTROPHILS % (AUTO) 86 % (42-75); PLATELET COUNT 316 x10^3/uL (130-400); RED BLOOD COUNT 3.78 x10^6/uL (4.38-5.82); RED CELL DISTRIBUTION WIDTH 14.2 % (9.4-14.8)
[2020-12-11 07:38] LABS: ALBUMIN 1.5 g/dL (3.4-5.0); ANION GAP 11 mmol/L (5-15); CALCIUM 8.7 mg/dL (8.5-10.1); CHLORIDE 102 mmol/L (98-107); CREATININE 8.49 mg/dL (0.7-1.3)
[2020-12-11 07:46] VITALS: BP 131/82
[2020-12-11] MEDS: ASCORBIC ACID 500 MG TABLET PO SCH ×2 (08:51→17:19)
[2020-12-11] MEDS: ZINC SULFATE 220 MG CAPSULE PO SCH (08:51)
[2020-12-11] MEDS: AMLODIPINE 10 MG TAB PO SCH (08:51)
[2020-12-11] MEDS: LACTOBACILLUS CHEW TABLET PO SCH ×3 (08:51→21:23)
[2020-12-11] MEDS: SODIUM CHLORIDE FLUSH 10ML SYR IVF SCH ×2 (08:52→21:23)
[2020-12-11] MEDS: ALBUTEROL HFA 90 MCG/SPRAY INH SCH (09:00)
[2020-12-11] MEDS: IRON SUCROSE COMPLEX 100MG/5ML IV SCH (13:59)
[2020-12-11 14:31] VITALS: BP 167/94
[2020-12-11] MEDS ORDERED: PIPERACILLIN/TAZO 2.25 GM in DEXTROSE 5% 50 ML IV SCH (19:00)
[2020-12-11 19:30] VITALS: BP 156/92
[2020-12-11] MEDS: MELATONIN 5 MG TABLET PO SCH (21:23)
[2020-12-11] MEDS: ENOXAPARIN 30 MG/0.3 ML SQ SCH (21:23)
[2020-12-11] MEDS: ONDANSETRON 2MG/ML, 2ML IV PRN (21:34)
[2020-12-12 01:35] VITALS: BP 149/95
[2020-12-12 04:58] VITALS: BP 156/98
[2020-12-12] MEDS: CARVEDILOL 6.25 MG TABLET PO SCH ×2 (04:59→18:05)
[2020-12-12 07:49] VITALS: BP 131/78
[2020-12-12] MEDS: ALBUTEROL HFA 90 MCG/SPRAY INH SCH (08:39)
[2020-12-12] MEDS: ASCORBIC ACID 500 MG TABLET PO SCH ×2 (08:39→16:08)
[2020-12-12] MEDS: AMLODIPINE 10 MG TAB PO SCH (08:39)
[2020-12-12] MEDS: LACTOBACILLUS CHEW TABLET PO SCH ×3 (08:39→20:48)
[2020-12-12] MEDS: ZINC SULFATE 220 MG CAPSULE PO SCH (08:39)
[2020-12-12] MEDS: SODIUM CHLORIDE FLUSH 10ML SYR IVF SCH ×2 (08:39→20:48)
[2020-12-12 08:52] LABS: BASOPHILS % (AUTO) 1 % (0-1); EOSINOPHILS % (AUTO) 3 % (1-7); LYMPHOCYTES % (AUTO) 7 % (22-44); MEAN CORPUSCULAR HGB CONC 33.1 g/dL (33.2-36.2); MEAN PLATELET VOLUME 8.6 fL (7.4-10.4); MONOCYTES % (AUTO) 8 % (2-9); NEUTROPHILS % (AUTO) 82 % (42-75); PLATELET COUNT 323 x10^3/uL (130-400); RED BLOOD COUNT 3.73 x10^6/uL (4.38-5.82); RED CELL DISTRIBUTION WIDTH 14.2 % (9.4-14.8)
[2020-12-12 08:56] LABS: ALBUMIN 1.6 g/dL (3.4-5.0); ANION GAP 11 mmol/L (5-15); CALCIUM 8.7 mg/dL (8.5-10.1); CHLORIDE 103 mmol/L (98-107); CREATININE 9.12 mg/dL (0.7-1.3)
[2020-12-12] MEDS: IRON SUCROSE COMPLEX 100MG/5ML IV SCH (11:52)
[2020-12-12] MEDS: ACETAMINOPHEN 325 MG TABLET PO PRN ×2 (13:07→20:49)
[2020-12-12 15:03] VITALS: BP 134/83
[2020-12-12 19:02] VITALS: BP 143/84
[2020-12-12] MEDS: MELATONIN 5 MG TABLET PO SCH (20:49)
[2020-12-13 02:31] VITALS: BP 145/86
[2020-12-13 06:03] LABS: BASOPHILS % (AUTO) 1 % (0-1); EOSINOPHILS % (AUTO) 3 % (1-7); LYMPHOCYTES % (AUTO) 9 % (22-44); MEAN CORPUSCULAR HEMOGLOBIN 29.5 pg (27.5-34.5); MEAN CORPUSCULAR HGB CONC 32.4 g/dL (33.2-36.2); MEAN PLATELET VOLUME 8.1 fL (7.4-10.4); MONOCYTES % (AUTO) 8 % (2-9); NEUTROPHILS % (AUTO) 80 % (42-75); PLATELET COUNT 368 x10^3/uL (130-400); RED BLOOD COUNT 3.81 x10^6/uL (4.38-5.82); RED CELL DISTRIBUTION WIDTH 14.3 % (9.4-14.8)
[2020-12-13 06:19] LABS: ANION GAP 11 mmol/L (5-15); CALCIUM 9.1 mg/dL (8.5-10.1); CHLORIDE 103 mmol/L (98-107)
[2020-12-13 06:23] LABS: INTERNATIONAL NORMALIZED RATIO 1.06 (0.93-1.1); PROTHROMBIN TIME 11.3 Seconds (9.6-11.5)
[2020-12-13 06:26] VITALS: BP 148/86
[2020-12-13] MEDS: CARVEDILOL 6.25 MG TABLET PO SCH ×2 (06:27→16:55)
[2020-12-13 08:08] VITALS: BP 145/85
[2020-12-13] MEDS: AMLODIPINE 10 MG TAB PO SCH (08:24)
[2020-12-13] MEDS: ASCORBIC ACID 500 MG TABLET PO SCH ×2 (08:24→16:55)
[2020-12-13] MEDS: LACTOBACILLUS CHEW TABLET PO SCH ×3 (08:24→20:11)
[2020-12-13] MEDS: ZINC SULFATE 220 MG CAPSULE PO SCH (08:24)
[2020-12-13] MEDS: SODIUM CHLORIDE FLUSH 10ML SYR IVF SCH ×2 (08:25→20:11)
[2020-12-13] MEDS: ALBUTEROL HFA 90 MCG/SPRAY INH SCH (08:25)
[2020-12-13] MEDS: IRON SUCROSE COMPLEX 100MG/5ML IV SCH (12:46)
[2020-12-13] MEDS: morphine SULFATE 10 MG/ML, 1ML IV PRN (12:47)
[2020-12-13] MEDS: ONDANSETRON 2MG/ML, 2ML IV PRN (12:47)
[2020-12-13 13:10] VITALS: BP 138/81
[2020-12-13 19:38] VITALS: BP 136/74
[2020-12-13] MEDS: MELATONIN 5 MG TABLET PO SCH (20:10)
[2020-12-14 01:22] VITALS: BP 143/85
[2020-12-14 06:35] VITALS: BP 144/83
[2020-12-14] MEDS: ACETAMINOPHEN 325 MG TABLET PO PRN (06:35)
[2020-12-14] MEDS: CARVEDILOL 6.25 MG TABLET PO SCH ×2 (06:36→17:15)
[2020-12-14 08:42] LABS: BASOPHILS % (AUTO) 1 % (0-1); EOSINOPHILS % (AUTO) 3 % (1-7); LYMPHOCYTES % (AUTO) 8 % (22-44); MEAN CORPUSCULAR HEMOGLOBIN 31.1 pg (27.5-34.5); MEAN CORPUSCULAR HGB CONC 34.7 g/dL (33.2-36.2); MEAN PLATELET VOLUME 7.6 fL (7.4-10.4); MONOCYTES % (AUTO) 8 % (2-9); NEUTROPHILS % (AUTO) 81 % (42-75); PLATELET COUNT 382 x10^3/uL (130-400); RED BLOOD COUNT 3.74 x10^6/uL (4.38-5.82); RED CELL DISTRIBUTION WIDTH 14.2 % (9.4-14.8)
[2020-12-14 08:54] LABS: ALBUMIN 1.9 g/dL (3.4-5.0); ANION GAP 8 mmol/L (5-15); CALCIUM 8.5 mg/dL (8.5-10.1); CHLORIDE 104 mmol/L (98-107)
[2020-12-14] MEDS: ASCORBIC ACID 500 MG TABLET PO SCH ×2 (09:03→17:15)
[2020-12-14] MEDS: ZINC SULFATE 220 MG CAPSULE PO SCH (09:03)
[2020-12-14] MEDS: AMLODIPINE 10 MG TAB PO SCH (09:03)
[2020-12-14] MEDS: LACTOBACILLUS CHEW TABLET PO SCH ×3 (09:03→20:54)
[2020-12-14] MEDS: ALBUTEROL HFA 90 MCG/SPRAY INH SCH (09:03)
[2020-12-14] MEDS: SODIUM CHLORIDE FLUSH 10ML SYR IVF SCH ×2 (09:04→20:55)
[2020-12-14 15:05] VITALS: BP 137/80
[2020-12-14 19:40] VITALS: BP 149/89
[2020-12-14] MEDS: MELATONIN 5 MG TABLET PO SCH (20:54)
[2020-12-15 01:53] VITALS: BP 159/88
[2020-12-15 05:36] VITALS: BP 163/95
[2020-12-15] MEDS: CARVEDILOL 6.25 MG TABLET PO SCH ×2 (05:37→17:36)
[2020-12-15 06:21] LABS: CHLORIDE 106 mmol/L (98-107)
[2020-12-15 06:32] LABS: ALANINE AMINOTRANSFERASE 48 U/L (12-78); ALBUMIN 1.9 g/dL (3.4-5.0); ALKALINE PHOSPHATASE 173 U/L (45-117); ANION GAP 9 mmol/L (5-15); BILIRUBIN,TOTAL 0.5 mg/dL (0.2-1.0); CALCIUM 8.5 mg/dL (8.5-10.1); TOTAL PROTEIN 7.4 g/dL (6.4-8.2)
[2020-12-15 08:06] VITALS: BP 152/87
[2020-12-15 08:30] LABS: BASOPHILS % (AUTO) 0 % (0-1); EOSINOPHILS % (AUTO) 2 % (1-7); LYMPHOCYTES % (AUTO) 8 % (22-44); MEAN CORPUSCULAR HEMOGLOBIN 29.9 pg (27.5-34.5); MEAN CORPUSCULAR HGB CONC 33.1 g/dL (33.2-36.2); MEAN PLATELET VOLUME 8.1 fL (7.4-10.4); MONOCYTES % (AUTO) 6 % (2-9); NEUTROPHILS % (AUTO) 83 % (42-75); PLATELET COUNT 382 x10^3/uL (130-400); RED BLOOD COUNT 3.73 x10^6/uL (4.38-5.82); RED CELL DISTRIBUTION WIDTH 14.2 % (9.4-14.8)
[2020-12-15] MEDS ORDERED: FENTANYL PF 100 MCG/2ML ONE (09:42)
[2020-12-15] MEDS ORDERED: MIDAZOLAM 1 MG/ML, 5ML ONE (09:42)
[2020-12-15] MEDS ORDERED: FLUMAZENIL 0.1 MG/1 ML, 5ML ONE (09:43)
[2020-12-15] MEDS ORDERED: NALOXONE 1 MG/ML, 2ML ONE (09:43)
[2020-12-15] MEDS ORDERED: LIDOCAINE 1%, 10ML ONE (09:46)
[2020-12-15] MEDS ORDERED: LIDOCAINE 1%, 20ML ONE (09:46)
[2020-12-15] MEDS ORDERED: CEFAZOLIN PMX 1GM/50ML 50 ML ONE (09:51)
[2020-12-15 11:15] VITALS: BP 140/90
[2020-12-15] MEDS: ALBUTEROL HFA 90 MCG/SPRAY INH SCH (11:24)
[2020-12-15] MEDS: ZINC SULFATE 220 MG CAPSULE PO SCH (11:24)
[2020-12-15] MEDS: LACTOBACILLUS CHEW TABLET PO SCH ×3 (11:24→20:19)
[2020-12-15] MEDS: SODIUM CHLORIDE FLUSH 10ML SYR IVF SCH ×2 (11:24→20:19)
[2020-12-15] MEDS: AMLODIPINE 10 MG TAB PO SCH (11:24)
[2020-12-15] MEDS: ASCORBIC ACID 500 MG TABLET PO SCH ×2 (11:24→17:36)
[2020-12-15] MEDS: ACETAMINOPHEN 325 MG TABLET PO PRN (13:14)
[2020-12-15 13:43] VITALS: BP 165/99
[2020-12-15 19:44] VITALS: BP 155/92
[2020-12-15] MEDS: MELATONIN 5 MG TABLET PO SCH (20:19)
[2020-12-16 00:36] VITALS: BP 153/89
[2020-12-16 05:52] VITALS: BP 158/60
[2020-12-16] MEDS: CARVEDILOL 6.25 MG TABLET PO SCH ×2 (05:53→19:17)
[2020-12-16 06:13] LABS: BASOPHILS % (AUTO) 1 % (0-1); EOSINOPHILS % (AUTO) 2 % (1-7); LYMPHOCYTES % (AUTO) 9 % (22-44); MEAN CORPUSCULAR HEMOGLOBIN 30.2 pg (27.5-34.5); MEAN CORPUSCULAR HGB CONC 33.6 g/dL (33.2-36.2); MEAN PLATELET VOLUME 7.7 fL (7.4-10.4); MONOCYTES % (AUTO) 9 % (2-9); NEUTROPHILS % (AUTO) 80 % (42-75); PLATELET COUNT 354 x10^3/uL (130-400); RED BLOOD COUNT 3.62 x10^6/uL (4.38-5.82); RED CELL DISTRIBUTION WIDTH 14.2 % (9.4-14.8)
[2020-12-16 06:36] LABS: CHLORIDE 109 mmol/L (98-107)
[2020-12-16 06:44] LABS: ANION GAP 7 mmol/L (5-15); CALCIUM 8.7 mg/dL (8.5-10.1)
[2020-12-16 08:50] VITALS: BP 164/99
[2020-12-16] MEDS: ASCORBIC ACID 500 MG TABLET PO SCH ×2 (11:08→16:27)
[2020-12-16] MEDS: AMLODIPINE 10 MG TAB PO SCH (11:08)
[2020-12-16] MEDS: ALBUTEROL HFA 90 MCG/SPRAY INH SCH (11:09)
[2020-12-16] MEDS: ZINC SULFATE 220 MG CAPSULE PO SCH (11:09)
[2020-12-16] MEDS: LACTOBACILLUS CHEW TABLET PO SCH ×3 (11:09→20:25)
[2020-12-16] MEDS: SODIUM CHLORIDE FLUSH 10ML SYR IVF SCH ×2 (11:09→20:25)
[2020-12-16] MEDS: ERGOCALCIFEROL 50,000 UNIT CAPSULE PO SCH (16:27)
[2020-12-16 19:09] VITALS: BP 156/93
[2020-12-16 19:42] VITALS: BP 169/99
[2020-12-16] MEDS: MELATONIN 5 MG TABLET PO SCH (20:25)
[2020-12-17 00:12] VITALS: BP 146/90
[2020-12-17 05:48] VITALS: BP 150/90
[2020-12-17] MEDS: CARVEDILOL 6.25 MG TABLET PO SCH (05:49)
[2020-12-17 06:26] LABS: ALBUMIN 1.9 g/dL (3.4-5.0); ANION GAP 5 mmol/L (5-15); CALCIUM 8.2 mg/dL (8.5-10.1); CHLORIDE 107 mmol/L (98-107); CREATININE 5.34 mg/dL (0.7-1.3)
[2020-12-17] MEDS ORDERED: CARVEDILOL 6.25 MG TABLET PO ONE (06:30)
[2020-12-17] MEDS: ONDANSETRON 2MG/ML, 2ML IV PRN (08:57)
[2020-12-17] MEDS: ZINC SULFATE 220 MG CAPSULE PO SCH (08:58)
[2020-12-17] MEDS: LACTOBACILLUS CHEW TABLET PO SCH ×3 (08:58→20:53)
[2020-12-17] MEDS: ALBUTEROL HFA 90 MCG/SPRAY INH SCH (08:58)
[2020-12-17] MEDS: AMLODIPINE 10 MG TAB PO SCH (08:58)
[2020-12-17] MEDS: ASCORBIC ACID 500 MG TABLET PO SCH ×2 (08:58→17:08)
[2020-12-17] MEDS: SODIUM CHLORIDE FLUSH 10ML SYR IVF SCH ×2 (08:59→20:53)
[2020-12-17 09:03] VITALS: BP 156/102
[2020-12-17 13:08] VITALS: BP 152/87
[2020-12-17 17:07] VITALS: BP 156/97
[2020-12-17] MEDS: CARVEDILOL 12.5 MG TABLET PO SCH (17:08)
[2020-12-17 19:49] VITALS: BP 139/89
[2020-12-17] MEDS: MELATONIN 5 MG TABLET PO SCH (20:53)
[2020-12-18 02:06] VITALS: BP 138/90
[2020-12-18 05:23] VITALS: BP 151/94
[2020-12-18] MEDS: CARVEDILOL 12.5 MG TABLET PO SCH ×2 (05:24→17:35)
[2020-12-18 05:46] LABS: BASOPHILS % (AUTO) 1 % (0-1); EOSINOPHILS % (AUTO) 3 % (1-7); LYMPHOCYTES % (AUTO) 12 % (22-44); MEAN CORPUSCULAR HEMOGLOBIN 30.1 pg (27.5-34.5); MEAN CORPUSCULAR HGB CONC 33.4 g/dL (33.2-36.2); MEAN PLATELET VOLUME 7.6 fL (7.4-10.4); MONOCYTES % (AUTO) 9 % (2-9); NEUTROPHILS % (AUTO) 75 % (42-75); PLATELET COUNT 295 x10^3/uL (130-400); RED BLOOD COUNT 3.44 x10^6/uL (4.38-5.82); RED CELL DISTRIBUTION WIDTH 14.4 % (9.4-14.8)
[2020-12-18 05:56] LABS: CHLORIDE 106 mmol/L (98-107)
[2020-12-18 06:02] LABS: ALBUMIN 1.8 g/dL (3.4-5.0); ANION GAP 7 mmol/L (5-15); CALCIUM 8.3 mg/dL (8.5-10.1); CREATININE 5.27 mg/dL (0.7-1.3)
[2020-12-18 07:44] VITALS: BP 148/91
[2020-12-18] MEDS: SODIUM CHLORIDE FLUSH 10ML SYR IVF SCH ×2 (09:00→20:53)
[2020-12-18] MEDS: ZINC SULFATE 220 MG CAPSULE PO SCH (09:11)
[2020-12-18] MEDS: AMLODIPINE 10 MG TAB PO SCH (09:11)
[2020-12-18] MEDS: LACTOBACILLUS CHEW TABLET PO SCH ×3 (09:11→20:51)
[2020-12-18] MEDS: ASCORBIC ACID 500 MG TABLET PO SCH ×2 (09:11→16:24)
[2020-12-18] MEDS: ALBUTEROL HFA 90 MCG/SPRAY INH SCH (10:36)
[2020-12-18 13:35] VITALS: BP 143/88
[2020-12-18 20:00] VITALS: BP 145/90
[2020-12-18] MEDS: MELATONIN 5 MG TABLET PO SCH (20:52)
[2020-12-19 01:46] VITALS: BP 140/86
[2020-12-19 06:27] LABS: ANION GAP 7 mmol/L (5-15); CALCIUM 8.5 mg/dL (8.5-10.1); CHLORIDE 107 mmol/L (98-107); CREATININE 4.69 mg/dL (0.7-1.3)
[2020-12-19] MEDS: CARVEDILOL 12.5 MG TABLET PO SCH ×2 (06:27→17:40)
[2020-12-19 08:10] VITALS: BP 133/83
[2020-12-19] MEDS: ZINC SULFATE 220 MG CAPSULE PO SCH (09:03)
[2020-12-19] MEDS: AMLODIPINE 10 MG TAB PO SCH (09:03)
[2020-12-19] MEDS: ASCORBIC ACID 500 MG TABLET PO SCH ×2 (09:03→17:40)
[2020-12-19] MEDS: LACTOBACILLUS CHEW TABLET PO SCH ×3 (09:03→21:27)
[2020-12-19] MEDS: SODIUM CHLORIDE FLUSH 10ML SYR IVF SCH ×2 (09:04→21:27)
[2020-12-19] MEDS: ALBUTEROL HFA 90 MCG/SPRAY INH SCH (09:48)
[2020-12-19 14:26] VITALS: BP 142/87
[2020-12-19 21:24] VITALS: BP 156/95
[2020-12-19] MEDS: ACETAMINOPHEN 325 MG TABLET PO PRN (21:27)
[2020-12-19] MEDS: MELATONIN 5 MG TABLET PO SCH (21:28)
[2020-12-20] MEDS: ONDANSETRON 2MG/ML, 2ML IV PRN (00:25)
[2020-12-20 00:44] VITALS: BP 148/97
[2020-12-20 06:25] LABS: CHLORIDE 106 mmol/L (98-107)
[2020-12-20 06:27] LABS: BASOPHILS % (AUTO) 1 % (0-1); EOSINOPHILS % (AUTO) 4 % (1-7); LYMPHOCYTES % (AUTO) 17 % (22-44); MEAN CORPUSCULAR HEMOGLOBIN 29.4 pg (27.5-34.5); MEAN CORPUSCULAR HGB CONC 32.8 g/dL (33.2-36.2); MEAN PLATELET VOLUME 7.6 fL (7.4-10.4); MONOCYTES % (AUTO) 10 % (2-9); NEUTROPHILS % (AUTO) 69 % (42-75); PLATELET COUNT 329 x10^3/uL (130-400); RED BLOOD COUNT 3.42 x10^6/uL (4.38-5.82); RED CELL DISTRIBUTION WIDTH 14.5 % (9.4-14.8)
[2020-12-20 06:33] LABS: ALANINE AMINOTRANSFERASE 40 U/L (12-78); ALKALINE PHOSPHATASE 146 U/L (45-117); ANION GAP 9 mmol/L (5-15); BILIRUBIN,TOTAL 0.3 mg/dL (0.2-1.0); CALCIUM 8.6 mg/dL (8.5-10.1); CREATININE 3.92 mg/dL (0.7-1.3); TOTAL PROTEIN 7.3 g/dL (6.4-8.2)
[2020-12-20] MEDS: CARVEDILOL 12.5 MG TABLET PO SCH (06:42)
[2020-12-20 08:03] VITALS: BP 147/92
[2020-12-20] MEDS: ASCORBIC ACID 500 MG TABLET PO SCH (08:51)
[2020-12-20] MEDS: AMLODIPINE 10 MG TAB PO SCH (08:52)
[2020-12-20] MEDS: SODIUM CHLORIDE FLUSH 10ML SYR IVF SCH (08:52)
[2020-12-20] MEDS: LACTOBACILLUS CHEW TABLET PO SCH (08:52)
[2020-12-20] MEDS: ZINC SULFATE 220 MG CAPSULE PO SCH (08:52)
[2020-12-20] MEDS: ALBUTEROL HFA 90 MCG/SPRAY INH SCH (09:00)
[2020-12-20] MEDS ORDERED: CARV12.52 PO (10:30)
[2020-12-20] MEDS ORDERED: TRAM50TA2 PO (10:30)
[2020-12-20] MEDS ORDERED: LIDOCAINE 1%, 10ML ONE (12:42)
[2020-12-20 13:42] VITALS: BP 150/92
== END 2020-12-20 15:30 | disposition home or self-care (01) | DRG 163 ==
LOC: ED 13:47 → EDIP 17:16 → 4EST 17:54
PROVIDERS: ADMIT Internal Medicine; ATTEND Family Medicine
PROC: 0BNL0ZZ Release Left Lung, Open Approach (ICD-10-PCS; principal; 2020-12-03)
PROC: 0BJL4ZZ Inspection of Left Lung, Percutaneous Endoscopic Approach (ICD-10-PCS; 2020-12-03)
PROC: 0W9900Z Drainage of Right Pleural Cavity with Drainage Device, Open Approach (ICD-10-PCS; 2020-12-03)
PROC: 0W993ZZ Drainage of Right Pleural Cavity, Percutaneous Approach (ICD-10-PCS; 2020-12-03)
PROC: 5A1D70Z Performance of Urinary Filtration, Intermittent, Less than 6 Hours Per Day (ICD-10-PCS; 2020-12-14)
PROC: 0JH63XZ Insertion of Tunneled Vascular Access Device into Chest Subcutaneous Tissue and Fascia, Percutaneous Approach (ICD-10-PCS; 2020-12-15)
PROC: 02HV33Z Insertion of Infusion Device into Superior Vena Cava, Percutaneous Approach (ICD-10-PCS; 2020-12-15)
PROC: B518ZZA Fluoroscopy of Superior Vena Cava, Guidance (ICD-10-PCS; 2020-12-15)
PROC: B548ZZA Ultrasonography of Superior Vena Cava, Guidance (ICD-10-PCS; 2020-12-15)
PROC: 5A1D70Z Performance of Urinary Filtration, Intermittent, Less than 6 Hours Per Day (ICD-10-PCS; 2020-12-16)
DX: J18.9 Pneumonia, unspecified organism (principal); J96.01 Acute respiratory failure with hypoxia; N17.9 Acute kidney failure, unspecified; E87.2 Acidosis; E87.1 Hypo-osmolality and hyponatremia; J90 Pleural effusion, not elsewhere classified; E87.6 Hypokalemia; R74.01 Elevation of levels of liver transaminase levels; E83.51 Hypocalcemia; D50.9 Iron deficiency anemia, unspecified; N14.1 Nephropathy induced by other drugs, medicaments and biological substances; T50.8X5A Adverse effect of diagnostic agents, initial encounter; I12.9 Hypertensive chronic kidney disease with stage 1 through stage 4 chronic kidney disease, or unspecified chronic kidney disease; N18.9 Chronic kidney disease, unspecified; Y92.89 Other specified places as the place of occurrence of the external cause
CPT/HCPCS: 36415; 77001; 83986; 84145; 89051; 96374; 99285; J3490; J7613; J7626; 32555; 36558; 36589; 71045; 71275; 76604; 76770; 76937; 80048; 80053; 80069; 80074; 80202; 81001; 82306; 82330; 82436; 82570; 82728; 83540; 83550; 83605; 83735; 83880; 83935; 83970; 84100; 84133; 84156; 84157; 84300; 84484; 84550; 85025; 85610; 86480; 87040; 87070; 87075; 87205; 87635; 88112; 88305; 90935; 93005; 93306; 93970; 94640; 99156; 99157; C1729; G0378; J0171; J0690; J1100; J1170; J1644; J1650; J1756; J1940; J2250; J2405; J2543; J2704; J3010; J3370; Q0162; Q9967; C1750; J1642; J2270; J2310; J3480; J7040; J7050

== ENCOUNTER 2020-12-26 13:54 | Outpatient (CLI) | payer OTHER ==
[~2020-12-26 13:54] MED LIST changes: +CARV12.52 PO; +TRAM50TA2 PO
[2020-12-26 14:32] LABS: BASOPHILS % (AUTO) 1 % (0-1); EOSINOPHILS % (AUTO) 3 % (1-7); LYMPHOCYTES % (AUTO) 22 % (22-44); MEAN CORPUSCULAR HEMOGLOBIN 29.5 pg (27.5-34.5); MEAN CORPUSCULAR HGB CONC 32.8 g/dL (33.2-36.2); MEAN PLATELET VOLUME 7.6 fL (7.4-10.4); MONOCYTES % (AUTO) 8 % (2-9); NEUTROPHILS % (AUTO) 65 % (42-75); PLATELET COUNT 269 x10^3/uL (130-400); RED BLOOD COUNT 4.08 x10^6/uL (4.38-5.82); RED CELL DISTRIBUTION WIDTH 14.7 % (9.4-14.8)
[2020-12-26 14:45] LABS: ALBUMIN 2.8 g/dL (3.4-5.0); ANION GAP 7 mmol/L (5-15); CALCIUM 9.1 mg/dL (8.5-10.1); CHLORIDE 107 mmol/L (98-107)
[2020-12-26 14:47] LABS: MICROSCOPIC INDICATED
[2020-12-26 14:50] LABS: ALANINE AMINOTRANSFERASE 116 U/L (12-78); ALKALINE PHOSPHATASE 177 U/L (45-117); BILIRUBIN,TOTAL 0.4 mg/dL (0.2-1.0); CREATININE 2.11 mg/dL (0.7-1.3)
== END 2020-12-26 23:59 | disposition home or self-care (01) ==
LOC: LAB 13:54
PROVIDERS: ATTEND Internal Medicine
DX: R94.4 Abnormal results of kidney function studies (principal)
CPT/HCPCS: 36415; 80053; 81001; 82570; 83735; 84100; 84156; 85025; 87086